=== PATIENT | female | born 1955 | race Hispanic/Latino ===

== ENCOUNTER 2020-07-07 23:43 | Emergency (ER) | payer SELFPAY ==
[~2020-07-07] VITALS: Ht 154.9 cm; Wt 77.6 kg
[2020-07-07] MEDS ORDERED: SODIUM CHLORIDE 0.9% 1000ML 1,000 ML IV STA (23:58)
[2020-07-08] MEDS ORDERED: METHYLPREDNISOLONE SOD SUCC 125 MG/2ML VIAL IV ONE
[2020-07-08] MEDS ORDERED: ALBUTEROL/IPRATROPIUM 3 ML NEB NEB ONE
[2020-07-08] MEDS ORDERED: DIPHENHYDRAMINE HCL INJ 50 MG/ML VIAL IV ONE
[2020-07-08] MEDS ORDERED: DIPHENHYDRAMINE HCL 25 MG CAP ONE (00:06)
[2020-07-08] MEDS ORDERED: METHYLPREDNISOLONE SOD SUCC 125 MG/2ML VIAL ONE (00:06)
[2020-07-08] MEDS ORDERED: FAMOTIDINE 20 MG/2 ML VIAL IV ONE ×2 (00:06)
[2020-07-08] MEDS ORDERED: EPINEPHRINE HCL 1:1000 1ML 1 MG/ML AMP ONE (00:06)
[2020-07-08] MEDS ORDERED: FAMOTIDINE20 MG PO (00:08)
[2020-07-08] MEDS ORDERED: CETIRIZINE HCL10 MG PO (00:08)
[2020-07-08] MEDS ORDERED: PROVENTIL HFA6.7 GM INH (00:08)
[2020-07-08] MEDS ORDERED: DIPHENHYDRAMINE25 MG PO (00:08)
[2020-07-08] MEDS ORDERED: PREDNISONE50 MG PO (00:08)
[2020-07-08] MEDS ORDERED: DIPHENHYDRAMINE HCL INJ 50 MG/ML VIAL ONE (00:10)
[2020-07-08] MEDS ORDERED: ALBUTEROL/IPRATROPIUM 3 ML NEB ONE (00:10)
[2020-07-08] MEDS ORDERED: SODIUM CHLORIDE 0.9% 1000ML 1,000 ML ONE (00:11)
== END 2020-07-08 00:45 | disposition home or self-care (01) ==
LOC: FSED 07-08 00:05
DX: L50.9 Urticaria, unspecified (principal); T78.40XA Allergy, unspecified, initial encounter; R06.02 Shortness of breath; J98.01 Acute bronchospasm
CPT/HCPCS: 99283; J0171; J1200; J2930; J7030

== ENCOUNTER 2022-09-09 08:21 | Emergency (ER) | payer MEDICARE ==
[~2022-09-09] VITALS: Ht 152.4 cm; Wt 75.3 kg
[~2022-09-09 08:21] MED LIST: CETIRIZINE HCL10 MG PO; DIPHENHYDRAMINE25 MG PO; FAMOTIDINE20 MG PO; PREDNISONE50 MG PO; PROVENTIL HFA6.7 GM INH
[2022-09-09 08:49] VITALS: O2SAT 97
[2022-09-09] MEDS ORDERED: METHYLPREDNISOLONE SOD SUCC 125 MG/2ML VIAL IM ONE (09:00)
[2022-09-09] MEDS ORDERED: FAMOTIDINE 20 MG TAB PO ONE (09:00)
[2022-09-09] MEDS ORDERED: PREDNISONE50 MG PO (09:05)
[2022-09-09] MEDS ORDERED: PEPCID20 MG PO (09:05)
[2022-09-09] MEDS ORDERED: BENADRYL25 M1 PO (09:05)
[2022-09-09] MEDS ORDERED: METHYLPREDNISOLONE SOD SUCC 125 MG/2ML VIAL ONE (09:14)
[2022-09-09] MEDS ORDERED: FAMOTIDINE 20 MG TAB ONE (09:14)
== END 2022-09-09 09:51 | disposition home or self-care (01) ==
LOC: FSED 08:39
DX: L50.9 Urticaria, unspecified (principal); T78.40XA Allergy, unspecified, initial encounter; E03.9 Hypothyroidism, unspecified
CPT/HCPCS: 99282; J2930

== ENCOUNTER 2022-09-20 16:13 | Emergency (ER) | payer MEDICARE ==
[~2022-09-20] VITALS: Ht 162.6 cm; Wt 81.6 kg
[~2022-09-20 16:13] MED LIST changes: +BENADRYL25 M1 PO; +PEPCID20 MG PO
[2022-09-20 16:20] VITALS: O2SAT 100
[2022-09-20] MEDS ORDERED: PYRIDIUM100 MG PO (17:21)
[2022-09-20] MEDS ORDERED: CIPRO500 MG PO (17:21)
== END 2022-09-20 17:15 | disposition home or self-care (01) ==
LOC: FSED 16:17
DX: R30.0 Dysuria (principal); N39.0 Urinary tract infection, site not specified; R31.9 Hematuria, unspecified; E03.9 Hypothyroidism, unspecified
CPT/HCPCS: 74176; 81003; 87086; 87186; 99284